=== PATIENT | female | born 1960 | race Caucasian/White ===

== ENCOUNTER 2023-08-05 10:43 | Outpatient (OUT) | payer BC, SELFPAY ==
--- NOTE | 2023-08-05 10:54 | XR_ITS ---
The [address] [address] Patient Name: TAMMY RIZZO MRN: [id number] date: 1960 Sex: F Assigned Patient Location: [facility] Current Patient Location: Accession/Order Number: [id number] Exam Date: 08/05/2023 10:58 Report Date: 08/06/2023 07:02 At the request of: HUSSEIN DAIGLE Procedure: XR cervical spine w flex/ext EXAMINATION: XR cervical spine w flex/ext HISTORY: back pain M54.9 COMPARISON: No relevant comparison available. FINDINGS: BONES: 1 mm anterolisthesis of C4 on 5 which progresses to near 3 mm during flexion and reduces to no listhesis during extension. Mild-moderate degenerative facet arthropathy C2-3, C3-4, C5-6, C6-7. DISC SPACES: Moderate narrowing C5-6. Mild narrowing C4-5. PARASPINOUS: Negative. No paraspinous abnormality is seen. OTHER: Negative. XR/XR cervical spine w flex/ext IMPRESSION: 1. Multilevel mild to moderate degenerative changes of the cervical spine. Consider MRI for further evaluation. Electronically authenticated by: GONZALEZ SOSA Date: 08/06/2023 07:02
--- NOTE | 2023-08-05 10:54 | XR_ITS ---
The [address] [address] Patient Name: TAMMY RIZZO MRN: [id number] date: 1960 Sex: F Assigned Patient Location: [facility] Current Patient Location: [facility] Accession/Order Number: [id number] Exam Date: 08/05/2023 10:58 Report Date: 08/06/2023 07:09 At the request of: HUSSEIN DAIGLE Procedure: XR thoracic spine 3V EXAMINATION: XR thoracic spine 3V HISTORY: back pain M54.9 COMPARISON: No relevant comparison available. FINDINGS: BONES: Slight right convex curvature of upper thoracic spine. No fracture, spondylolisthesis, bone lesion. DISC SPACES: No significant disc height narrowing, subluxation, or endplate abnormality. PARASPINOUS: Negative. No paraspinous abnormality is seen. OTHER: Negative. XR/XR thoracic spine 3V IMPRESSION: 1. No appreciable acute abnormality. 2. Minimal degenerative changes. Electronically authenticated by: GONZALEZ SOSA Date: 08/06/2023 07:09
== END 2023-08-05 10:44 | disposition home or self-care (01) ==
PROVIDERS: PCP Internal Medicine; Visit Provider Internal Medicine
DX: M54.9 Dorsalgia, unspecified (principal); M50.31 Other cervical disc degeneration, high cervical region; M50.022 Cervical disc disorder at C5-C6 level with myelopathy; M50.023 Cervical disc disorder at C6-C7 level with myelopathy
CPT/HCPCS: 72052; 72072

== ENCOUNTER 2023-08-25 11:36 | Emergency (ER) | payer BC, SELFPAY ==
[2023-08-25 11:41] VITALS: BP 193/78; PULSE 75; TEMP 37; O2SAT 100; BMI 26.4
--- NOTE | 2023-08-25 11:49 | ECG_ITS ---
The [facility] Test Date: 2023-08-25 Pat Name: TAMMY RIZZO Department: Room: - Gender: Female [employer]ator Operator: : 1960 Requested By: HUSSEIN DAIGLE Order Number: [id number] Reading MD: HUSSEIN DAIGLE Measurements Intervals [place] Rate: 64 P: 67 MA: 134 QRS: 62 QRSD: 74 T: 63 QT: 416 QTc: 425 Interpretive Statements 1100 Sinus rhythm 9110 normal ECG No previous ECG available for comparison Electronically Signed On 08-26-2023 7:42:15 EDT by HUSSEIN DAIGLE
--- NOTE | 2023-08-25 11:50 | ED_ITS ---
HPI HPI - General Adult General Chief complaint: Weakness Stated complaint: GENERAL WEAKNESS Time Seen by Provider: 08/25/23 11:41 Source: patient Mode of arrival: walk-in History of Present Illness HPI narrative: 63-year-old female presents for a burning feeling that is moving around her body. She has had this for the last week or so. There was no specific injury. She saw her family doctor who ordered some outpatient x-rays and this showed degenerative changes. The burning moves around and has been on her back and her arms and her legs. No new medications. No fever vomiting or diarrhea. Related Data Home Medications ?Medication ?Instructions ?Recorded ?Confirmed ascorbic acid (vitamin C) 1,000 mg 1 g PO DAILY 08/25/23 08/25/23 tablet (Vitamin C) calcium 500 mg tablet 500 mg PO DAILY 08/25/23 08/25/23 cholecalciferol (vit D3) 137.5 mcg 1 tab PO DAILY 08/25/23 08/25/23 (5,500 unit)-vit K2 200 mcg tablet (DosoKap) cholecalciferol (vit D3) 137.5 mcg 1 tab PO DAILY 08/25/23 08/25/23 (5,500 unit)-vit K2 200 mcg tablet (DosoKap) citalopram 20 mg tablet 20 mg PO DAILY 08/25/23 08/25/23 estradiol 0.01% (0.1 mg/gram) 1 g vaginal .2 times a week 08/25/23 08/25/23 vaginal cream folic acid 15 mg tablet 800 mcg PO DAILY 08/25/23 08/25/23 levothyroxine 25 mcg tablet 25 mcg PO DAILY 08/25/23 08/25/23 omeprazole 40 mg capsule,delayed 40 mg PO DAILY 08/25/23 08/25/23 release psyllium husk 0.4 gram capsule 0.4 g PO DAILY 08/25/23 08/25/23 (Metamucil) solifenacin 5 mg tablet 5 mg PO .2 times a wk 08/25/23 08/25/23 Allergies Allergy/AdvReac Type Severity Reaction Status Date / Time cephalexin [From Keflex] Allergy Severe Verified 08/25/23 11:50 doxycycline Allergy Severe Verified 08/25/23 11:50 levofloxacin Allergy Severe Verified 08/25/23 11:50 nitrofurantoin Allergy Severe Verified 08/25/23 11:50 [From Macrobid] sulfamethoxazole Allergy Severe Verified 08/25/23 11:50 [From Bactrim] trimethoprim [From Bactrim] Allergy Severe Verified 08/25/23 11:50 Opioid HPI Opioid Management Most Recent Opioid Data: No Data to Display Review of Systems ROS Narrative A ten point review of systems is negative except as noted above. Exam Narrative Exam Narrative: Nurses note and vital signs reviewed and patient is not hypoxic. General: The patient appears well and in no apparent distress. Patient is res ting comfortably on cart. Skin: Warm, dry, no pallor noted. There is no rash noted. Head: Normocephalic, atraumatic Eye: Normal conjunctiva, no drainage Ears, Nose, Mouth, and Throat: oral mucosa is moist. Nares patent. Cardiovascular: Regular Rate and Rhythm Respiratory: Patient is in no distress, no accessory muscle use, lungs are clear to auscultation, no wheezing, rales or rhonchi Back: non-tender GI: Soft and nontender Musculoskeletal: The patient has no evidence of calf tenderness, no pitting edema, symmetrical pulses noted bilaterally Neurological: A&O, normal speech Psychiatric: Cooperative Constitutional Vital Signs, click to edit/add: Last Vital Signs Temp 98.6 F 08/25/23 11:41 Pulse 75 08/25/23 11:41 Resp 18 08/25/23 11:41 BP 180/90 H 08/25/23 13:19 Pulse Ox 100 08/25/23 11:41 O2 Del Method Room Air 08/25/23 11:41 Course Vital Signs Vital signs: Vital Signs Temperature 98.6 F 08/25/23 11:41 Pulse Rate 75 08/25/23 11:41 Respiratory Rate 18 08/25/23 11:41 Blood Pressure 193/78 H 08/25/23 11:41 Pulse Oximetry 100 08/25/23 11:41 Oxygen Delivery Method Room Air 08/25/23 11:41 Temperature 98.6 F 08/25/23 11:41 Pulse Rate 75 08/25/23 11:41 Respiratory Rate 18 08/25/23 11:41 Blood Pressure 180/90 H 08/25/23 13:19 Pulse Oximetry 100 08/25/23 11:41 Oxygen Delivery Method Room Air 08/25/23 11:41 Medical Decision Making MDM Narrative Medical decision making narrative: Her workup here is negative and physical exam is normal as well. She will be discharged home and follow-up was discussed with the patient and her . Lab Data Lab results reviewed: Yes I reviewed the patient's lab results Labs: Lab Results 08/25/23 08/25/23 Range/Units 11:58 13:10 WBC 7.5 (4.0-11.0) 10^3/uL RBC 4.76 (4.20-5.40) 10^6/uL Hgb 14.2 (12.0-16.0) g/dL Hct 44.0 (36.0-48.0) % MCV 92.4 (81.0-99.0) fL MCH 29.8 (26.7-34.0) pg MCHC 32.3 (29.9-35.2) g/dL RDW 12.9 (11.0-15.0) % Plt Count 264 (150-450) 10^3/uL MPV 9.3 L (9.5-13.5) fL Neut % (Auto) 74.3 (43.0-75.0) % Lymph % (Auto) 17.8 L (20.5-60.0) % [place] % (Auto) 4.9 (1.7-12.0) % Eos % (Auto) 1.9 (0.9-7.0) % Baso % (Auto) 0.8 (0.2-2.0) % Neut # (Auto) 5.6 (1.4-6.5) 10^3/uL Lymph # (Auto) 1.3 (1.2-3.8) 10^3/uL [place] # (Auto) 0.4 (0.3-0.8) 10^3/uL Eos # (Auto) 0.1 (0.0-0.7) 10^3/uL Baso # (Auto) 0.1 (0.0-0.1) 10^3/uL Abs Immat Gran (auto) 0.02 (0.00-0.03) 10^3/uL Imm/Tot Granulo (auto) 0.3 (0.0-0.5) % Sodium 137 (136-145) mmol/L Potassium 4.0 (3.5-5.1) mmol/L Chloride 101 (98-107) mmol/L Carbon Dioxide 24.9 (21.0-32.0) mmol/L Anion Gap 15.1 BUN 22.0 H (7.0-18.0) mg/dL Creatinine 0.94 (0.55-1.02) mg/dL Est GFR ( Amer) >60 (>=60) Est GFR (Non-Af Amer) 60 (>=60) BUN/Creatinine Ratio 23.4 Glucose 83 (74-106) mg/dL Calcium 10.1 (8.5-10.1) mg/dL Magnesium 1.9 (1.8-2.4) mg/dL Total Creatine Kinase 69 (26-192) U/L Urine Color Lt. yellow (YELLOW) Urine Clarity Clear (CLEAR) Urine pH 5.5 (5.0-9.0) Ur Specific [place] <=1.005 A (1.005-1.025) Urine Protein Negative (NEG/TRACE) mg/dL Urine Glucose (UA) Negative (NEGATIVE) mg/dL Urine Ketones 15 A (NEGATIVE) mg/dL Urine Occult Blood Trace-i (NEGATIVE) Urine Nitrite Negative (NEGATIVE) Urine Bilirubin Negative (NEGATIVE) Urine Urobilinogen 0.2 (0.2-1.0) EU/dL Ur Leukocyte Esterase Negative (NEGATIVE) Urine RBC 0-2 (0-2) #/HPF Urine WBC None seen (NONE SEEN) #/HPF Ur Squamous Epith Cells Few A (NONE/RARE) #/LPF Urine Crystals None seen (None Seen) #/HPF Urine Bacteria Trace A (NONE SEEN) #/HPF Urine Casts None seen (NONE SEEN) #/LPF Urine Mucus None seen (NONE SEEN) ECG Data Attestation: I personally reviewed and interpreted this ECG as follows: (EKG on my interpretation shows normal sinus rhythm without acute change and rate of 64.) Discharge Plan Discharge Stand Alone Forms: Portal Instructions Chief Complaint: Weakness Clinical Impression: Paresthesia Patient Disposition: Home, Self-Care Time of Disposition Decision: 13:36 Condition: Good Mode of Transportation: Private Vehicle Prescriptions / Home Meds: No Action DosoKap 137.5-200 mcg tablet 1 tab PO DAILY citalopram 20 mg tablet 20 mg PO DAILY levothyroxine 25 mcg tablet 25 mcg PO DAILY omeprazole 40 mg capsule,delayed release(DR/EC) 40 mg PO DAILY solifenacin 5 mg tablet 5 mg PO .2 times a wk Patient Comments: mon and fri DosoKap 137.5-200 mcg tablet 1 tab PO DAILY psyllium husk [Metamucil] 0.4 gram capsule 0.4 g PO DAILY folic acid 15 mg tablet 800 mcg PO DAILY calcium 500 mg tablet 500 mg PO DAILY ascorbic acid (vitamin C) [Vitamin C] 1,000 mg tablet 1 g PO DAILY estradiol 0.01 % (0.1 mg/gram) cream 1 g VAGINAL .2 times a week Patient Comments: mon and fri Print Language: Spanish Instructions: Paresthesia (ED) Additional Instructions: Follow-up with Dr. Pickens Referrals: Guero Pickens DO [Primary Care Provider] - 1 week
[2023-08-25 12:07] LABS: Basophils Absolute Auto 0.1 10^3/uL (0.0-0.1); Basophils Percent Auto 0.8 % (0.2-2.0); Eosinophils Absolute Auto 0.1 10^3/uL (0.0-0.7); Eosinophils Percent Auto 1.9 % (0.9-7.0); Hemoglobin 14.2 g/dL (12.0-16.0); Immature Granulocytes Abs Auto 0.02 10^3/uL (0.00-0.03); Immature Granulocytes Pct Auto 0.3 % (0.0-0.5); Lymphocytes Absolute Auto 1.3 10^3/uL (1.2-3.8); Lymphocytes Percent Auto 17.8 % (20.5-60.0); Mean Corpuscular HGB Conc 32.3 g/dL (29.9-35.2); Mean Corpuscular Hemoglobin 29.8 pg (26.7-34.0); Mean Corpuscular Volume 92.4 fL (81.0-99.0); Mean Platelet Volume 9.3 fL (9.5-13.5); Monocytes Absolute Auto 0.4 10^3/uL (0.3-0.8); Monocytes Percent Auto 4.9 % (1.7-12.0); Neutrophils Absolute Auto 5.6 10^3/uL (1.4-6.5); Neutrophils Percent Auto 74.3 % (43.0-75.0); Platelet Count 264 10^3/uL (150-450); Red Blood Count 4.76 10^6/uL (4.20-5.40); Red Cell Distribution Width 12.9 % (11.0-15.0); White Blood Count 7.5 10^3/uL (4.0-11.0)
[2023-08-25 12:18] LABS: Anion Gap 15.1; BUN Creatinine Ratio 23.4; Calcium 10.1 mg/dL (8.5-10.1); Carbon Dioxide 24.9 mmol/L (21.0-32.0); Chloride 101 mmol/L (98-107); Creatine Kinase 69 U/L (26-192); Estimated GFR (African America >60 (>=60); Estimated GFR (Non-African Ame 60 (>=60); Glucose 83 mg/dL (74-106); Magnesium 1.9 mg/dL (1.8-2.4); Sodium 137 mmol/L (136-145)
[2023-08-25 13:19] VITALS: BP 180/90
[2023-08-25 13:24] LABS: Bilirubin Urine NEGATIVE (NEGATIVE); Blood Urine TRACE-I (NEGATIVE); Clarity Urine CLEAR (CLEAR); Color Urine LT. YELLOW (YELLOW); Glucose Urine UA NEGATIVE (NEGATIVE); Ketones Urine 15 mg/dL (NEGATIVE); Leukocyte Esterase Urine NEGATIVE (NEGATIVE); Nitrite Urine NEGATIVE (NEGATIVE); Protein Urine NEGATIVE (NEG/TRACE); Specific Gravity Urine <=1.005 (1.005-1.025); Urobilinogen Urine 0.2 EU/dL (0.2-1.0); pH Urine 5.5 (5.0-9.0)
[2023-08-25 13:32] LABS: Bacteria Urine TRACE #/HPF (NONE SEEN); Cast Seen? NONE SEEN #/LPF (NONE SEEN); Crystals Seen? None Seen #/HPF (None Seen); Mucus Urine NONE SEEN (NONE SEEN); RBC Urine 0-2 #/HPF (0-2); Squamous Epithelial Cell Urine FEW #/LPF (NONE/RARE); WBC Urine NONE SEEN #/HPF (NONE SEEN)
== END 2023-08-25 13:44 | disposition home or self-care (01) ==
PROVIDERS: Emergency Provider Emergency Medicine; PCP Internal Medicine
DX: R20.2 Paresthesia of skin (principal); Z79.899 Other long term (current) drug therapy; Z79.890 Hormone replacement therapy
CPT/HCPCS: 36415; 80048; 81001; 82550; 83735; 85025; 93005; 99284

== ENCOUNTER 2023-09-02 13:52 | Outpatient (OUT) | payer BC, SELFPAY ==
--- NOTE | 2023-09-02 14:56 | P.CN_ITS ---
Consult Note: HPI Data of Consult Patient: new to practice Consult date: 09/02/23 Requesting Physician: Estella Jernigan MD Primary Care Provider: Guero Pickens DO Consult Narrative Reason for consult: neck pain Narrative: 63yof who presents for evaluation. several months of neck pain with intense episode of burning pain for several weeks, though burning pain has subsided. still has chronic axial neck pain. imaging reviewed, which shows multilevel facet arthropathy and spondylosis. suggestion of foraminal narrowing, though no mri to review. engages in series of provider directed home exercises. change to anti-inflammatory diet has provided significant relief. cc:: CC: Estella Jernigan MD Review of Systems ROS Status of ROS 10 or more systems reviewed and unremark able except as noted in history and below Meds Home Medications and Allergies Home Medications ?Medication ?Instructions ?Recorded ?Confirmed ?Type ascorbic acid (vitamin C) 1,000 mg 1 g PO DAILY 08/25/23 08/25/23 History tablet (Vitamin C) calcium 500 mg tablet 500 mg PO DAILY 08/25/23 08/25/23 History cholecalciferol (vit D3) 137.5 mcg 1 tab PO DAILY 08/25/23 08/25/23 History (5,500 unit)-vit K2 200 mcg tablet (DosoKap) cholecalciferol (vit D3) 137.5 mcg 1 tab PO DAILY 08/25/23 08/25/23 History (5,500 unit)-vit K2 200 mcg tablet (DosoKap) citalopram 20 mg tablet 20 mg PO DAILY 08/25/23 08/25/23 History estradiol 0.01% (0.1 mg/gram) 1 g vaginal .2 times a week 08/25/23 08/25/23 History vaginal cream folic acid 15 mg tablet 800 mcg PO DAILY 08/25/23 08/25/23 History levothyroxine 25 mcg tablet 25 mcg PO DAILY 08/25/23 08/25/23 History omeprazole 40 mg capsule,delayed 40 mg PO DAILY 08/25/23 08/25/23 History release psyllium husk 0.4 gram capsule 0.4 g PO DAILY 08/25/23 08/25/23 History (Metamucil) solifenacin 5 mg tablet 5 mg PO .2 times a wk 08/25/23 08/25/23 History Allergies Allergy/AdvReac Type Severity Reaction Status Date / Time cephalexin [From Keflex] Allergy Severe Verified 08/25/23 11:50 doxycycline Allergy Severe Verified 08/25/23 11:50 levofloxacin Allergy Severe Verified 08/25/23 11:50 nitrofurantoin Allergy Severe Verified 08/25/23 11:50 [From Macrobid] sulfamethoxazole Allergy Severe Verified 08/25/23 11:50 [From Bactrim] trimethoprim [From Bactrim] Allergy Severe Verified 08/25/23 11:50 Exam Narrative Exam Narrative: Psych-alert and oriented x 3.? Attentive and appropriate, constitutionally normal, displays normal mood and affect per situation.? There are no obvious deficits in memory, reasoning, or intellect.? Skin-no obvious rashes, bruising, or erythema noted to the patient's area of pain. Extremities-upper extremities are warm with minimal edema and palpable pulses. Cervical- tenderness to palpation noted in the cervical spine and paraspinal musculature.? Pain is elicited with extension, and lateral rotation of the cervical spine.? Range of motion is slightly diminished due to pain. Facet loading maneuvers are positive bilaterally.? Coordination remains intact.? Gait remains non-antalgic. Assessment and Plan Assessment and Plan (1) Cervical spondylosis: Plan 63 yof who presents for evaluation. failed conservative measures, as noted. imaging reviewed, as noted. given symptoms and imaging, discussed that if pain were to become more persistent, would be prudent to attempt bilateral c5-6, 6-7 medial branch blocks under fluoroscopic guidance with intention of proceeding to rfa. she expressed understanding and will call if symptoms progress. meds reviewed, no changes. follow up as needed.
== END 2023-09-02 13:53 | disposition home or self-care (01) ==
PROVIDERS: PCP Internal Medicine; Visit Provider Anesthesiology
DX: M47.812 Spondylosis without myelopathy or radiculopathy, cervical region (principal)
CPT/HCPCS: G0463

== ENCOUNTER 2024-01-15 15:20 | Outpatient (OUT) | payer BC, SELFPAY ==
--- NOTE | 2024-01-15 15:25 | XR_ITS ---
The [address] [address] Patient Name: TAMMY RIZZO MRN: [id number] date: 1960 Sex: F Assigned Patient Location: [facility] Current Patient Location: Accession/Order Number: [id number] Exam Date: 01/15/2024 15:30 Report Date: 01/17/2024 04:55 At the request of: JUSTICE WHEELER Procedure: XR sinus min 3V EXAMINATION: XR sinus min 3V HISTORY: chronic sinusitis, unspecified location J32.9 COMPARISON: CT sinuses 03/19/2022 FINDINGS: MAXILLARY: No mucosal thickening or fluid level. ETHMOID: No mucosal thickening or fluid level. FRONTAL: No developed frontal sinuses. SPHENOID: No mucosal thickening or fluid level. OTHER: Negative. XR/XR sinus min 3V IMPRESSION: 1. No appreciable fluid levels or mucosal thickening to suggest acute or chronic sinusitis. Electronically authenticated by: GONZALEZ SOSA Date: 01/17/2024 04:55
== END 2024-01-15 15:21 | disposition home or self-care (01) ==
LOC: RAD 15:21
PROVIDERS: PCP Internal Medicine; Visit Provider Otolaryngology
DX: J32.9 Chronic sinusitis, unspecified (principal)
CPT/HCPCS: 70220